=== PATIENT | male | born 1955 | race Hispanic/Latino ===

== ENCOUNTER 2019-03-12 08:50 | Inpatient (IN) | payer SELFPAY ==
[~2019-03-12] VITALS: Ht 167.6 cm; Wt 87.2 kg
[2019-03-12 09:24] LABS: APPEARANCE,URINE Clear (CLEAR); BILIRUBIN,URINE Negative (NEGATIVE); COLOR,URINE Yellow (YELLOW); GLUCOSE, URINE (UA) 500 mg/dL (NEGATIVE); KETONES,URINE Negative (NEGATIVE); LEUKOCYTE ESTERASE ,URINE Negative (NEGATIVE); NITRATE,URINE Negative (NEGATIVE); OCCULT BLOOD,URINE Negative (NEGATIVE); PH,URINE 5.5 (5.0-8.0); PROTEIN,URINE POS 1+ mg/dL (NEGATIVE)
[2019-03-12 09:30] LABS: RBC,URINE 0-1 /HPF (0-1)
[2019-03-12 09:30] LABS: BASOPHILS % (AUTO) 0.3 % (0.0-5.0); EOSINOPHILS % (AUTO) 0.1 % (0.0-8.0); HEMATOCRIT 36.8 % (42-54); LYMPHOCYTES % (AUTO) 6.4 % (21.0-51.0); MEAN CORPUSCULAR HEMOGLOBIN 29.6 pg (27.0-33.0); MEAN CORPUSCULAR HGB CONC 33.7 g/dL (32.0-36.0); MONOCYTES % (AUTO) 6.5 % (3.0-13.0); NEUTROPHILS % (AUTO) 86.7 % (40.0-77.0); PLATELET COUNT (AUTO) 344 K/uL (130-400); RED BLOOD CELL COUNT(AUTO) 4.18 MIL/uL (4.50-6.20); RED CELL DISTRIBUTION WIDTH 13.2 % (11.0-15.5); WHITE BLOOD COUNT (AUTO) 17.9 K/uL (4.8-10.8)
[2019-03-12 09:31] LABS: BACTERIA,URINE Rare /HPF (None Seen); SQUAMOUS EPITHELIAL CELL,UR Rare /HPF (0-2)
[2019-03-12 09:37] LABS: CREATININE 0.9 mg/dL (0.5-1.5); POTASSIUM 3.2 mmol/L (3.5-5.1)
[2019-03-12] MEDS ORDERED: ONDANSETRON HCL 4 MG/2 ML VIAL ONE (09:38)
[2019-03-12] MEDS ORDERED: KETOROLAC TROMETHAMINE 15MG/ML ONE (09:39)
[2019-03-12] MEDS ORDERED: SODIUM CHLORIDE 0.9% 1000ML 1,000 ML IV ONE ×3 (09:39→14:15)
[2019-03-12 09:49] LABS: ALBUMIN 2.5 g/dL (3.5-5.0); BILIRUBIN,TOTAL 0.7 mg/dL (0.2-1.0); TOTAL PROTEIN, SERUM 7.6 g/dL (6.0-8.3)
[2019-03-12] MEDS: SODIUM CHLORIDE 0.9% 1000ML 1,000 ML IV SCH ×2 (11:16→19:03)
[2019-03-12] MEDS ORDERED: ONDANSETRON HCL 4 MG/2 ML VIAL IV PRN (11:30)
[2019-03-12] MEDS ORDERED: MEPERIDINE-PF 25 MG/ML SYG IV PRN (11:30)
[2019-03-12] MEDS ORDERED: POTASSIUM CHLORIDE 20 MEQ ERTAB PO SCH (11:30)
[2019-03-12] MEDS ORDERED: ACETAMINOPHEN 325 MG TAB PO PRN (11:30)
[2019-03-12] MEDS ORDERED: HYDRALAZINE HCL 20 MG/ML VIAL IV PRN (11:30)
[2019-03-12 11:44] LABS: HEMOGLOBIN A1C 7.1 % (4.0-6.0)
[2019-03-12] MEDS: INSULIN HUMULIN R 100 UNIT/ML 3ML SQ SCH ×2 (12:00→18:00)
[2019-03-12] MEDS ORDERED: POTASSIUM CHLORIDE 20 MEQ ERTAB PO ONE (12:05)
[2019-03-12] MEDS ORDERED: ZOSYN 3.375GM+NS 50ML 50 ML IV ONE (12:19)
[2019-03-12] MEDS: ZOSYN 3.375GM+NS 50ML 50 ML IV SCH ×2 (13:00→20:00)
[2019-03-12 14:50] VITALS: BP 121/71
--- NOTE | 2019-03-12 15:00 | NUR ---
ADMISSION FROM ER. PER SERVICES OF DR. DIAZ .PT AAO X 3 , AT PRESENT . DENIES ANY ABD .. PAIN, OR NAUSEA, VOMITING STATED . THAT HE DOES NOT HAVE ANY PAIN. NPO STATUS ,FALL RISK REVIEW AND CALL LIGHT. ARYA Andrade HERE AND ALSO REVIEW PLAN OF CARE AND ASSESSMENT .CALL LIGHT IN REACH
--- NOTE | 2019-03-12 16:00 | NUR ---
CM INITIAL Met w/ pt and daughter- Pt [id number] in no distress. Lives with spouse Carolin Lombardi. daughter Jeanne to provide ride home , no dme, no PMD, no insurance.,pt declined info on esquivel clnica,/low cost clnics. will re offer post op. dcp home Addendum: 03/13/19 at 1856 by ETHAN CUETO RN CM Amended: Links added.
--- NOTE | 2019-03-12 16:00 | NUR ---
PT STATED THAT HE DOES NOT TAKE ANY MEDICATION AT HOME, ,
--- NOTE | 2019-03-12 17:38 | NUR ---
DR. GONZALEZ HERE ,
--- NOTE | 2019-03-12 18:34 | NUR ---
PT . BACK FROM THE [facility] SCAN , WITH RESULTS PENDING .
[2019-03-12 19:05] VITALS: BP 151/82
[2019-03-12] MEDS: FAMOTIDINE/PF 20 MG/2 ML VIAL IV SCH (20:00)
--- NOTE | 2019-03-12 20:00 | NUR ---
ASSESS SHIFT ASSESSMENT DONE, PLEASE REFER TO CHART. PT'S TEMPERATURE IS [id number]. PT VERBALIZES HEADACHE. DUE MEDS ADMINISTERED AND TYLENOL PO GIVEN FOR PAINS AND FEVER. KEPT COMFORTABLE IN BED. WILL RE-ASSESS PT.
[2019-03-12] MEDS: ACETAMINOPHEN 325 MG TAB PO PRN (20:09)
--- NOTE | 2019-03-12 21:00 | NUR ---
RE-CHECK PT'S TEMPERATURE [id number]. KEPT ROOM TEMPERATURE COOL. ICE PACKS PLACED ON PT'S HEAD AND ARMPITS. WILL RE-ASSESS PT.
[2019-03-13 00:05] VITALS: BP 99/53
[2019-03-13] MEDS: ACETAMINOPHEN 325 MG TAB PO PRN ×2 (00:17→20:04)
--- NOTE | 2019-03-13 00:17 | NUR ---
H/A PCP IN AND MONITORED V/S. PT [id number]=[id number] AND CLAIMS OF ACHING. TYLENOL PO ADMINISTERED. KEPT COMFORTABLE IN BED. WILL MONITOR PT.
[2019-03-13] MEDS: SODIUM CHLORIDE 0.9% 1000ML 1,000 ML IV SCH ×3 (01:55→18:53)
--- NOTE | 2019-03-13 02:15 | NUR ---
SHOWER PCP IN AND ASSISTED PT TO SHOWER. TOLERATED ACTIVITY WELL. KEPT RESTED AND COMFORTABLE IN BED. WILL MONITOR PT.
[2019-03-13 04:05] VITALS: BP 102/65
[2019-03-13] MEDS: ZOSYN 3.375GM+NS 50ML 50 ML IV SCH ×3 (04:39→21:00)
[2019-03-13 05:12] LABS: CHOLESTEROL 114 mg/dL (<200); HDL CHOLESTEROL 15 mg/dL (29-71); LDL DIRECT 76 mg/dL (0-99); TRIGLYCERIDES 122 mg/dL (30-200)
[2019-03-13] MEDS: INSULIN HUMULIN R 100 UNIT/ML 3ML SQ SCH ×4 (06:00→18:00)
--- NOTE | 2019-03-13 06:50 | NUR ---
REPORT ENDORSED PT TO KAY ROSE. NURSE'S ROUNDS DONE. FOR MORE CARE.
[2019-03-13 07:44] VITALS: BP 111/59
[2019-03-13] MEDS: FAMOTIDINE/PF 20 MG/2 ML VIAL IV SCH ×2 (09:03→20:02)
[2019-03-13] MEDS: ENOXAPARIN SODIUM 40 MG/0.4 ML SYRINGE SQ SCH (09:04)
[2019-03-13 12:00] VITALS: BP 127/68
[2019-03-13 15:21] VITALS: BP 125/73
[2019-03-13] MEDS ORDERED: IOHEXOL-350 50ML VIAL IV ONE (16:01)
[2019-03-13 19:05] VITALS: BP 133/70
[2019-03-14] VITALS (21 sets, daily range): BP systolic 107–151; BP diastolic 67–89
[2019-03-14] MEDS: SODIUM CHLORIDE 0.9% 1000ML 1,000 ML IV SCH ×3 (03:57→22:12)
[2019-03-14] MEDS: ZOSYN 3.375GM+NS 50ML 50 ML IV SCH ×3 (05:08→22:05)
[2019-03-14 05:42] LABS: HEMATOCRIT 36.8 % (42-54); MEAN CORPUSCULAR HGB CONC 33.5 g/dL (32.0-36.0); MEAN CORPUSCULAR VOLUME 89.5 fL (79-99); PLATELET COUNT (AUTO) 397 K/uL (130-400); RED BLOOD CELL COUNT(AUTO) 4.11 MIL/uL (4.50-6.20); RED CELL DISTRIBUTION WIDTH 13.5 % (11.0-15.5); WHITE BLOOD COUNT (AUTO) 16.6 K/uL (4.8-10.8)
[2019-03-14] MEDS: INSULIN HUMULIN R 100 UNIT/ML 3ML SQ SCH ×4 (06:00→18:00)
[2019-03-14] MEDS ORDERED: LIDOCAINE PF 2% 5ML ABBOJECT ONE (06:07)
[2019-03-14] MEDS ORDERED: PROPOFOL 10 MG/ML 20ML VIAL IV ONE ×2 (06:07→07:50)
[2019-03-14 06:08] LABS: ALBUMIN 2.2 g/dL (3.5-5.0); BILIRUBIN,TOTAL 0.9 mg/dL (0.2-1.0); CREATININE 0.9 mg/dL (0.5-1.5); PHOSPHORUS 3.5 mg/dL (2.5-4.9); POTASSIUM 3.6 mmol/L (3.5-5.1); TOTAL PROTEIN, SERUM 7.3 g/dL (6.0-8.3)
[2019-03-14] MEDS ORDERED: FENTANYL CITRATE PF 50 MCG/1 ML 2ML VIAL ONE ×2 (06:08→07:34)
[2019-03-14] MEDS ORDERED: ROCURONIUM 10MG/1ML SYR 10 MG/ML ML ONE (06:08)
[2019-03-14] MEDS ORDERED: ONDANSETRON HCL 4 MG/2 ML VIAL ONE (06:08)
[2019-03-14] MEDS ORDERED: MIDAZOLAM HCL 1 MG/ML 2ML VIAL ONE (06:08)
--- NOTE | 2019-03-14 06:10 | NUR ---
PATIENT UPDATE PT SLEPT WELL OVERNIGHT, SHOWERED EARLY AM, NO COMPLAINTS OF PAIN. TAKEN TO OR AT THIS TIME FOR LAP DIONE WITH INTRAOPERATIVE CHOLANGIOGRAM. CONTINUES WITH NS AT 125 CC'S PER HOUR AND ZOSYN FOR IV ANTIBIOTIC REGIMEN.
[2019-03-14] MEDS ORDERED: LACTATED RINGERS 1000ML 1,000 ML IV ONE (06:13)
--- NOTE | 2019-03-14 06:30 | NUR ---
SURGICAL PREP clipper used to prep abdominal area Addendum: 03/14/19 at 0632 by ANJUM DC RN RN Amended: Links added.
[2019-03-14] MEDS ORDERED: BUPIVACAINE/EPI/PF 0.5% 30ML VIAL IJ ONE (06:55)
[2019-03-14] MEDS ORDERED: NEOSTIGMINE 5MG/5ML SYR IV ONE (08:02)
[2019-03-14] MEDS ORDERED: GLYCOPYRROLATE 1 MG/5 ML SYRINGE ONE (08:02)
[2019-03-14] MEDS ORDERED: MORPHINE SULFATE 2 MG/ML 1ML SYG ONE (08:28)
[2019-03-14] MEDS ORDERED: KETOROLAC TROMETHAMINE 30MG/ML ONE (08:42)
[2019-03-14] MEDS: ENOXAPARIN SODIUM 40 MG/0.4 ML SYRINGE SQ SCH (09:00)
--- NOTE | 2019-03-14 09:30 | NUR ---
RETURNED TO THE UNIT VIA BED ALERT AND AWAKE, DENIES ACTIVE PAIN UPON ARRIVAL. 4 ABDOMINAL INCISIONS WITH LARGE BAND-AIDS ARE CLEAN AND DRY WITH MINIMAL BLOOD STAIN. IV LR INFUSING. HOSPITALIST KITCHEN CLERK IS HERE ROUNDING. VITAL SIGNS ARE STABLE.
--- NOTE | 2019-03-14 10:00 | NUR ---
PLACED ON SCD'S. FAMILY AT THE BEDSIDE WERE INFORMED OF THE PATIENT CURRENT STATUS WITH RETURNED UNDERSTANDING.
[2019-03-14] MEDS: FAMOTIDINE/PF 20 MG/2 ML VIAL IV SCH ×2 (11:32→22:05)
[2019-03-15 00:32] VITALS: BP 123/74
[2019-03-15 04:00] VITALS: BP 133/78
[2019-03-15 04:36] LABS: HEMATOCRIT 34.4 % (42-54); MEAN CORPUSCULAR HEMOGLOBIN 30.2 pg (27.0-33.0); MEAN CORPUSCULAR HGB CONC 33.6 g/dL (32.0-36.0); MEAN CORPUSCULAR VOLUME 89.8 fL (79-99); PLATELET COUNT (AUTO) 383 K/uL (130-400); RED BLOOD CELL COUNT(AUTO) 3.84 MIL/uL (4.50-6.20); RED CELL DISTRIBUTION WIDTH 13.3 % (11.0-15.5)
[2019-03-15 05:02] LABS: ALBUMIN 1.9 g/dL (3.5-5.0); BILIRUBIN,TOTAL 0.2 mg/dL (0.2-1.0); CREATININE 0.7 mg/dL (0.5-1.5); POTASSIUM 3.6 mmol/L (3.5-5.1); TOTAL PROTEIN, SERUM 6.7 g/dL (6.0-8.3)
[2019-03-15] MEDS: ZOSYN 3.375GM+NS 50ML 50 ML IV SCH ×2 (05:15→12:33)
[2019-03-15] MEDS: INSULIN HUMULIN R 100 UNIT/ML 3ML SQ SCH ×3 (06:00→11:27)
[2019-03-15] MEDS: SODIUM CHLORIDE 0.9% 1000ML 1,000 ML IV SCH (06:56)
[2019-03-15 08:00] VITALS: BP 137/79
[2019-03-15] MEDS: FAMOTIDINE/PF 20 MG/2 ML VIAL IV SCH (08:54)
[2019-03-15] MEDS: ENOXAPARIN SODIUM 40 MG/0.4 ML SYRINGE SQ SCH (08:55)
[2019-03-15 12:00] VITALS: BP 131/76
[2019-03-15] MEDS ORDERED: AMOX-426 PO (13:26)
--- NOTE | 2019-03-15 14:33 | NUR ---
PATIENT DISCHARGE PATIENT DISCHARGED, IV DISCONTINUED, CATHLON INTACT, BLEEDING CONTROLLED, PATIENT TOLERATED WITHOUT INCIDENT.
== END 2019-03-15 16:27 | disposition home or self-care (01) | DRG 418 ==
LOC: EDH 08:50 → EDHIP 08:51 → 3AH 14:50
PROVIDERS: ADMIT Internal Medicine; ATTEND Internal Medicine
PROC: BF141ZZ Fluoroscopy of Gallbladder, Bile Ducts and Pancreatic Ducts using Low Osmolar Contrast (ICD-10-PCS; 2019-03-14)
PROC: 0FT44ZZ Resection of Gallbladder, Percutaneous Endoscopic Approach (ICD-10-PCS; principal; 2019-03-14 06:55)
DX: K80.00 Calculus of gallbladder with acute cholecystitis without obstruction (principal); E87.1 Hypo-osmolality and hyponatremia; E44.0 Moderate protein-calorie malnutrition; E87.6 Hypokalemia; E86.1 Hypovolemia; E11.9 Type 2 diabetes mellitus without complications; K76.0 Fatty (change of) liver, not elsewhere classified; Z68.31 Body mass index [BMI] 31.0-31.9, adult
CPT/HCPCS: 36415; 74300; 76705; 78226; 80053; 80061; 81001; 82150; 82948; 83036; 83690; 83735; 84100; 84484; 85025; 85027; 87040; 88304; 93005; A9537; C1758; G0378; J1650; J1885; J2001; J2250; J2405; J2543; J2704; J2710; J3010; J3490; J7030; J7120; Q9967